=== PATIENT | female | born 1965 ===

== ENCOUNTER 2022-04-21 12:56 | Inpatient (IN) | payer OTHER, SELFPAY ==
[2022-04-21] VITALS (13 sets, daily range): BP systolic 110–169; BP diastolic 68–90; PULSE 73–130; RESP 15–20; TEMP 36.4–37.2; O2SAT 95–98; BMI 35.9
--- NOTE | ~2022-04-21 | XR_ITS ---
EXAMINATION: XR chest 1V portable DATE: 04/21/2022 14:18 INDICATION: Dizziness. Lower abdominal burning . COVID positive. TECHNIQUE: frontal view of the chest was obtained. COMPARISON: Chest radiograph dated 09/22/2013 FINDINGS: The lungs remain clear with no focal airspace opacities, pulmonary edema, pleural effusion or pneumot horax. The cardiomediastinal silhouette is normal. Old healed right clavicle fracture deformity. IMPRESSION: 1. No acute cardiopulmonary disease. Reviewed, dictated and finalized at location A.
--- NOTE | 2022-04-21 13:24 | ED.DIZZY ---
HPI - Dizziness General Chief Complaint: Dizziness Stated Complaint: covid +, dizziness, clammy Time Seen by Provider: 04/21/22 13:23 Related Data Allergies Allergy/AdvReac Type Severity Reaction Status Date / Time Iodinated Contrast Media AdvReac Intermediate unk Verified 04/21/22 13:12 [facility] Past Medical History Medical History Adult BMI 38.0-38.9 kg/sq m BMI 36.0-36.9,adult Family History Family History Mother Hypertension Father Family history of diabetes mellitus in first degree relative Grandparent Diabetes mellitus Social History Social History (Updated 04/05/22 @ 11:31 by Sharon Sanches RN) Tobacco type: cigarettes Second hand tobacco smoke exposure: No Alcohol intake: never Substance use: never Substance use type: does not use Gender identity (if verbalized by the patient): Female Sexual Orientation (if Verbalized by the Patient): Straight or Heterosexual Course Vital Signs Vital signs: Vital Signs Temperature 36.4 C 04/21/22 13:07 Pulse Rate 73 04/21/22 13:07 Respiratory Rate 19 04/21/22 13:07 Blood Pressure 169/81 H 04/21/22 13:07 Pulse Oximetry 98 04/21/22 13:07 Temperature 36.4 C 04/21/22 13:07 Pulse Rate 73 04/21/22 13:07 Respiratory Rate 19 04/21/22 13:07 Blood Pressure 169/81 H 04/21/22 13:07 Pulse Oximetry 98 04/21/22 13:07 Discharge Plan Discharge Prescriptions: No Action esomeprazole magnesium [Nexium] 20 mg capsule,delayed release(DR/EC) 20 mg PO DAILY Qty: 90 RF: 0 metformin 500 mg tablet 1,500 mg PO DAILY Qty: 270 RF: 1 phenazopyridine [Pyridium] 200 mg tablet 200 mg PO TID PRN (Reason: pain) Qty: 6 RF: 0 fluconazole [Diflucan] 150 mg tablet 150 mg PO ONCE Qty: 2 RF: 0 lisinopril 20 mg tablet 20 mg PO DAILY Qty: 90 RF: 3 amlodipine 5 mg tablet 10 mg PO DAILY Qty: 180 RF: 1 metoprolol tartrate 50 mg tablet See Rx Instructions .ROUTE .COMPLEX Qty: 180 RF: 0 amoxicillin-pot clavulanate 875-125 mg tablet 1 tablet PO BID Qty: 20 RF: 0 cholecalciferol (vitamin D3) 1,250 mcg (50,000 unit) capsule 1,250 mcg PO WEEKLY 56 Days Qty: 8 RF: 0 rosuvastatin 40 mg tablet 40 mg PO DAILY Qty: 90 RF: 0
--- NOTE | 2022-04-21 13:32 | ECG_ITS ---
Measurements Intervals [place] Rate: 131 P: CT: 0 QRS: -28 QRSD: 94 T: 107 QT: 293 QTc: 433 Interpretive Statements ATRIAL FIBRILLATION WITH RAPID VENTRICULAR RESPONSE WITH INTERMITTENT SINUS COMPLEXES VENTRICULAR COUPLET LEFT VENTRICULAR HYPERTROPHY WITH ST-T CHANGE ANTEROSEPTAL INFARCT, AGE INDETERMINATE INFERIOR INFARCT, AGE INDETERMINATE BASELINE ARTIFACT- I, II, III, AVR, AVL ABNORMAL ECG Electronically Signed On 04-21-2022 17:06:28 CDT by Alexis Coulter D.O.
[2022-04-21 13:46] LABS: Basophils Percent Auto 0.2 % (0.2-1.2); Eosinophils Absolute Auto 0.1 K/mm3 (0-0.3); Eosinophils Percent Auto 1.6 % (0-4.4); Hematocrit 46.5 % (37.0-47.0); Hemoglobin 15.6 g/dL (12.0-15.0); Immature Granulocyte Absolute 0.05 K/mm3 (0.00-0.031); Immature Granulocyte Percent A 0.6 % (0-0.5); Lymphocytes Absolute Auto 1.46 K/mm3 (0.9-3.2); Lymphocytes Percent Auto 17.7 % (18.3-44.2); Mean Corpuscular HGB Conc 33.5 g/dl (32-36); Mean Corpuscular Hemoglobin 29.9 pg (26-34); Mean Corpuscular Volume 89.1 fl (80-100); Mean Platelet Volume 11.2 fl (7.4-10.4); Monocytes Absolute Auto 0.6 K/mm3 (0.1-0.6); Monocytes Percent Auto 6.8 % (2.6-8.5); Neutrophils Percent Auto 73.1 % (45.5-73.1); Platelet Count Result 285 k/mm3 (150-375); Red Blood Count 5.22 M/mm3 (4.2-5.4); Red Cell Distribution Width 12.7 % (11.5-14.5); White Blood Count 8.2 K/mm3 (4.5-10.0)
[2022-04-21 13:55] LABS: Alanine Aminotransferase 52 U/L (6-35); Albumin Level 4.3 g/dL (3.5-5.1); Alkaline Phosphatase 96 U/L (38-126); Anion Gap 10 mmol/L (8-16); Aspartate Amino Transferase 49 U/L (14-36); Bilirubin,Total 0.6 mg/dL (0.2-1.3); Blood Urea Nitrogen 14 mg/dL (7-17); Calcium 8.9 mg/dL (8.4-10.2); Carbon Dioxide 23 mmol/L (22-30); Chloride 107 mmol/L (98-107); Estimated CRCL calculation 125 ml/min; Estimated Glomerular Filt Rate > 60; Glucose 203 mg/dL (65-110); Potassium 3.9 mmol/L (3.4-5.0); Sodium 140 mmol/L (137-145)
[2022-04-21] MEDS: LACTATED RINGERS 1,000 ML 999 ML IV CONT (14:05)
--- NOTE | 2022-04-21 14:19 | ED.DIZZY ---
HPI - Dizziness General Chief Complaint: Dizziness Stated Complaint: covid +, dizziness, clammy Time Seen by Provider: 04/21/22 13:23 Source: patient, RN notes reviewed and old records reviewed Mode of arrival: ambulatory Limitations: no limitations History of Present Illness HPI Narrative: This is a 56 year old female with history DM, hypertension, hyperlipidemia who presents for evaluation of dizziness. This morning she woke up with dizziness. She also reports having nausea, vomiting and loose stools. She continues to have intermittent episodes of dizziness. She denies associated chest pain, sob, abdominal pain, fever or chills. She was found to have covid last Saturday after she developed runny nose and cough. She reports her runny nose and cough have resolved. She has been antibiotics for UTI over the past couple of weeks. She denies heart disease or arrhythmia. She has been found to be tachycardic in ER. She denies palpitations or feeling her heart racing. Related Data Home Medications Medication Instructions Recorded Confirmed amlodipine 5 mg PO BID 04/21/22 04/21/22 esomeprazole magnesium [Nexium] 20 mg PO QPM 04/21/22 04/21/22 metformin See Rx Instructions .ROUTE .COMPLEX 04/21/22 04/21/22 metoprolol tartrate 50 mg PO BID 04/21/22 04/21/22 Allergies Allergy/AdvReac Type Severity Reaction Status Date / Time Iodinated Contrast Media AdvReac Intermediate unk Verified 04/21/22 13:12 Review of Systems Review of Systems: All systems reviewed & are unremarkable except as noted in HPI and below Constitutional: Constitutional: Reports fatigue ENT: Reports nasal congestion Cardiovascular: Cardiovascular: Denies chest pain, Denies rapid heart rate and Denies radiating jaw, neck or arm pain Respiratory: Respiratory: Denies cough and Denies dyspnea Gastrointestinal: Gastrointestinal: Denies abdominal pain, Reports diarrhea, Reports nausea and Reports vomiting Genitourinary: Genitourinary: Reports dysuria Neurologic: Reports dizziness and Denies headache(s) [facility] Past Medical History Medical History (Updated 04/21/22 @ 22:01 by Grace Dominique MD) Essential hypertension Mixed hyperlipidemia Type 2 diabetes mellitus Vitamin D deficiency, unspecified Surgical History Surgical History (Updated 04/21/22 @ 16:11 by Eva Arvizu PA-C) History of 2 sections History of hysteroscopy History of tubal ligation Family History Family History (Updated 04/21/22 @ 18:11 by ERICA Willis) Mother Hypertension Father Family history of diabetes mellitus in first degree relative Stomach cancer Grandparent Diabetes mellitus Social History Social History (Updated 04/21/22 @ 16:12 by Eva Arvizu PA-C) Social History: Surrogate decision maker: Code status: Smoking status: Never smoker Tobacco type: cigarettes Second hand tobacco smoke exposure: No Alcohol intake: never Substance use: never Substance use type: does not use Spiritual care concerns: No Exam Const: General: no acute distress and alert Nutritional Appearance: obese Orientation/consciousness: patient oriented x3 HENMT: Head: normocephalic and atraumatic Ears: TM's normal bilaterally Face and sinus: normal facial exam, sinuses nontender and face symmetric Mouth: Yes Normal oral and palatal mucosa present, Yes lip normal, Yes oropharynx normal and Yes moist mucous membranes Eyes: EOM: EOMs intact bilaterally Resp: Effort & Inspection: normal respiratory effort and no retractions Auscultation: clear to auscultation bilaterally Cardio: Rate: tachycardic Rhythm: abnormal rhythm Heart sounds: no murmurs GI: GI Palp: Yes Soft to palpation, No Tenderness to palpation present (GI) and No Guarding due to palpation present (GI) Auscultation: normal bowel sounds Neuro: General: patient oriented x3, moves all extremities and CN's II-XI intact bilaterally Extrem: Genera
[2022-04-21 14:39] LABS: Add Urine Microscopic? YES; Appearance Urine Clear (Clear); Bilirubin Urine 1+ (Negative); Blood Urine Negative (Negative); Color Urine Orange (Yellow); Glucose Urine UA Trace mg/dL (Negative); Ketones Urine Trace mg/dL (Negative); Leukocyte Esterase Ur Negative LEU/UL (Negative); Nitrate Urine Positive (Negative); Protein Urine 2+ mg/dL (Negative); Specific Grav Ur 1.015 (1.001-1.035)
[2022-04-21 14:43] LABS: Amorphous Sediment Urine Few; Bacteria Urine Trace /hpf; Mucus Urine Heavy /lpf; Squamous Epithelial Cell Urine Occasional /hpf (Few)
--- NOTE | 2022-04-21 15:06 | PC.NURSE ---
called lab at 1506 to add on a MG, Trop 1 Baseline, Pt/INR/PTT, BNP, and the lab stated that they were already working on the D dimer.
[2022-04-21 15:07] LABS: SARS-CoV-2 RNA PCR Positive
[2022-04-21 15:17] LABS: Magnesium 1.6 mg/dL (1.6-2.3)
[2022-04-21 15:20] LABS: Prothrombin Time 13.2 Seconds (11.1-14.7)
[2022-04-21 15:21] LABS: Partial Thromboplastin Time 27.9 SECONDS (22.3-36.8)
[2022-04-21 15:22] LABS: Thyroid Stimulating Hormone Reflex 0.979 uIU/mL (0.465-4.68)
[2022-04-21 15:23] LABS: D Dimer 0.34 ug/mL (<0.48)
[2022-04-21 15:25] LABS: NT Pro B Type Natriuretic Pept 858 pg/mL (5-100)
[2022-04-21] MEDS: AMIODARONE 150 MG/D5W 100 ML 150 MG/100 ML BAG 600 MG IV CONT (15:27)
[2022-04-21] MEDS: ENOXAPARIN 100 MG/ML SYRINGE SUB-Q (15:27)
[2022-04-21 15:30] LABS: Troponin I < 0.012 ng/mL (0.000-0.034)
[2022-04-21] MEDS: AMIODARONE 360 MG/D5W 200 ML 360 MG/200 ML BAG 33.33 MG IV CONT (16:22)
--- NOTE | 2022-04-21 16:30 | PM.IMHP ---
H&P: HPI History of Present Illness Date/Time: 04/21/22 16:30 Chief Complaint: Dizziness. Narrative: This is a 56-year-old female with type 2 diabetes, hypertension, and hyperlipidemia who presented to the emergency department for evaluation of dizziness. She did not feel well last Saturday with a cough, sore throat, nausea, vomiting, and loose stools. Same day she took an at home COVID test which came back positive. Her symptoms improved within about 3 days however over the past 3 days she has started to feel unwell again. She is vague in her descriptions but from what I can gather she has been feeling lightheaded and dizzy with position changes and she has also noticed that her upper abdomen seems to heave or quiver with activity. Additionally she reports mild shortness of breath with exertion. She also continues to have dysuria and burning in the vulvar area which has been an ongoing issue for over a month and she has been treated with 2 different antibiotics for urinary tract infections. She was afebrile on arrival to the emergency department and blood pressures have been stable. She has been tachycardic since arrival with telemetry demonstrating atrial fibrillation with rapid ventricular response although at times it looks as though she has occasional sinus complexes and frequent ectopy. Reportedly she had several brief runs of nonsustained ventricular tachycardia and she has since been started on an amiodarone drip. She has no known history of coronary artery disease or cardiac dysrhythmia and again she really has no sensations of racing heart or palpitations at this time. Review of Systems Review of Systems: Twelve systems were reviewed. No fever or chills. She denies sinus congestion and current sore throat. No significant cough. No orthopnea, PND, or lower extremity edema. No history of cardiac dysrhythmia or coronary artery disease. No history of thyroid disease. She denies concerns for sleep apnea. Appetite has been okay. No recent vomiting or diarrhea. No significant alcohol or caffeine intake. She continues to have dysuria and reports a burning sensation of the vulva. She has some clear vaginal discharge. No malodorous discharge, pruritus, or concerns for sexually transmitted infections. Except as documented, all other systems were reviewed and are negative. [facility] Past Medical History Medical History Essential hypertension Mixed hyperlipidemia Type 2 diabetes mellitus Vitamin D deficiency, unspecified Surgical History Surgical History (Updated 04/21/22 @ 16:11 by Eva Arvizu PA-C) History of 2 sections History of hysteroscopy History of tubal ligation Family History Family History Mother Hypertension Father Family history of diabetes mellitus in first degree relative Stomach cancer Grandparent Diabetes mellitus Social History Social History (Updated 04/21/22 @ 23:06 by Eva Arvizu PA-C) Social History: Surrogate decision maker: Luis M Rendon, spouse. Code status: Full code. Smoking status: Never smoker Tobacco type: cigarettes Second hand tobacco smoke exposure: No Alcohol intake: never Substance use: never Substance use type: does not use Spiritual care concerns: No Meds Home Medications and Allergies Home Medications Medication Instructions Recorded Confirmed Type lisinopril 20 mg tablet 20 mg PO DAILY #90 tablet 11/01/21 04/21/22 Rx cholecalciferol (vitamin D3) 1,250 1,250 mcg PO WEEKLY 56 Days #8 cap 04/20/22 04/21/22 Rx mcg (50,000 unit) capsule amlodipine 5 mg PO BID 04/21/22 04/21/22 History esomeprazole magnesium [Nexium] 20 mg PO QPM 04/21/22 04/21/22 History metformin See Rx Instructions .ROUTE .COMPLEX 04/21/22 04/21/22 History metoprolol tartrate 50 mg PO BID 04/21/22 04/21/22 History Allergies Allergy/AdvReac Type Severity Reac
--- NOTE | 2022-04-21 17:56 | ADMGEN ---
This patient, Collette Rendon, was admitted to IMU Room 200-01 at 1756. Patient/family oriented to hospital policies and general routines including ID bracelet, bed and alarms, visiting hours, pain management, procedures, bathroom and other care routines, personal items, smoking policy, room service/diet, and visiting hours. Information on how to activate the Rapid Response Team has been discussed. Patient/Family are encouraged to report perceived risks to care and to ask questions if they do not understand what they are told or what they should do.
[2022-04-21 20:03] LABS: Glucose Point of Care 271 mg/dl (65-105)
[2022-04-21] MEDS: AMIODARONE 360 MG/D5W 200 ML 360 MG/200 ML BAG 16.67 MG IV CONT (22:15)
[2022-04-21 23:14] LABS: Hemoglobin A1C 7.1 % (<5.7)
[2022-04-21] MEDS: METOPROLOL TARTRATE 50 MG TAB PO (23:46)
[2022-04-21] MEDS: MAGNESIUM SULF 2 GM/WATER 50ML 2 GM/50 ML BAG IVPB (23:46)
[2022-04-21] MEDS: POTASSIUM CHLORIDE 20 MEQ TABLET PO (23:47)
[2022-04-22] VITALS (20 sets, daily range): BP systolic 126–149; BP diastolic 60–80; PULSE 60–90; RESP 16–22; TEMP 36.2–37.1; O2SAT 94–97
[2022-04-22 04:49] LABS: Basophils Absolute Auto 0.1 K/mm3 (0.0-0.1); Basophils Percent Auto 0.6 % (0.2-1.2); Eosinophils Absolute Auto 0.2 K/mm3 (0-0.3); Eosinophils Percent Auto 2.4 % (0-4.4); Hematocrit 44.7 % (37.0-47.0); Hemoglobin 14.7 g/dL (12.0-15.0); Immature Granulocyte Absolute 0.04 K/mm3 (0.00-0.031); Immature Granulocyte Percent A 0.5 % (0-0.5); Lymphocytes Absolute Auto 2.28 K/mm3 (0.9-3.2); Lymphocytes Percent Auto 26.1 % (18.3-44.2); Mean Corpuscular HGB Conc 32.9 g/dl (32-36); Mean Corpuscular Hemoglobin 30.2 pg (26-34); Mean Corpuscular Volume 91.8 fl (80-100); Monocytes Absolute Auto 0.7 K/mm3 (0.1-0.6); Monocytes Percent Auto 8.2 % (2.6-8.5); Neutrophils Absolute Auto 5.5 K/mm3 (1.3-6.7); Neutrophils Percent Auto 62.2 % (45.5-73.1); Platelet Count Result 314 k/mm3 (150-375); Red Blood Count 4.87 M/mm3 (4.2-5.4); White Blood Count 8.8 K/mm3 (4.5-10.0)
[2022-04-22 04:59] LABS: Alanine Aminotransferase 50 U/L (6-35); Albumin Level 4.2 g/dL (3.5-5.1); Alkaline Phosphatase 75 U/L (38-126); Anion Gap 10 mmol/L (8-16); Aspartate Amino Transferase 51 U/L (14-36); Bilirubin,Total 0.6 mg/dL (0.2-1.3); Blood Urea Nitrogen 12 mg/dL (7-17); Calcium 8.7 mg/dL (8.4-10.2); Carbon Dioxide 27 mmol/L (22-30); Chloride 105 mmol/L (98-107); Estimated CRCL calculation 105 ml/min; Estimated Glomerular Filt Rate > 60; Glucose 180 mg/dL (65-110); Magnesium 2.3 mg/dL (1.6-2.3); Sodium 142 mmol/L (137-145)
[2022-04-22] MEDS: ENOXAPARIN 100 MG/ML SYRINGE SUB-Q ×2 (06:05→20:48)
--- NOTE | 2022-04-22 07:37 | ECG_ITS ---
Measurements Intervals [place] Rate: 73 P: 17 SD: 174 QRS: -29 QRSD: 99 T: 3 QT: 441 QTc: 488 Interpretive Statements SINUS RHYTHM VOLTAGE CRITERIA FOR LVH BORDERLINE R WAVE PROGRESSION, ANTERIOR LEADS CONSIDER INFERIOR INFARCT, AGE INDETERMINATE BASELINE WANDER- I, II, III ABNORMAL ECG Electronically Signed On 04-22-2022 11:00:50 CDT by Alexis Coulter D.O.
[2022-04-22 07:42] LABS: Glucose Point of Care 206 mg/dl (65-105)
--- NOTE | 2022-04-22 08:09 | PM.CNCAR ---
Assessment and Plan Additional Plan 56-year-old lady with history of hypertension and diabetes otherwise in relatively good health presents with the onset of lightheadedness episodes and has a rather chaotic rhythm noted in the emergency room. Appears to have both atrial and ventricular ectopic activity. These arrhythmias have settled down with amiodarone and she is now asymptomatic. Etiology of this is unclear it is certainly possible this is related to recent COVID infection. Since she did appear to have runs of nonsustained VT am going to keep her on the amiodarone infusion at least for today and get an echocardiogram ordered. That of course will not happen until tomorrow morning. Following that we will leave further recommendations regarding antiarrhythmic treatment. If she has preserved left ventricular systolic function I will try to select an agent that is less potentially toxic than amiodarone. She does not describe any symptoms suggestive of ischemic disease and has no significant evidence of valvular disease on physical exam. Hu Degroot MD [facility] History of Present Illness History of Present Illness Consult date/time: 04/22/22 08:09 Consult reason: Other (Nonsustained ventricular tachycardia) Reason For Visit: Nonsustained V Tach, COVID+, Dizziness Narrative: This is a pleasant previously relatively healthy 56-year-old lady I am seeing at the request of the hospitalist and emergency room staff because of atrial and ventricular arrhythmias that were noted in the emergency room last evening. The patient says she was in her usual state of health when the day prior to coming in she noticed the onset of symptoms of lightheadedness and dizziness upon arising from a seated position. She did not have a syncopal episode or of his consciousness at any point she noted these symptoms to be something very unusual for her and yesterday afternoon came into the emergency department to be evaluated. In the ED was noted that she was tachycardic and rhythm strips were recorded as well as electrocardiogram. She appears to have sinus rhythm with frequent runs of atrial ectopic activity as well as several runs of what appears to be monomorphic ventricular tachycardia on telemetry. She was bolused with amiodarone in the emergency room placed on amiodarone infusion and admitted to the IMU. After being placed on amiodarone her rhythm has stabilized she is in sinus rhythm at this time with a heart rate of 76 and she is asymptomatic. She has no prior history of cardiac problems that she has ever been made aware of. She interestingly did test positive for coronavirus about a week ago. She had symptoms of a dry nonproductive cough and right rhinorrhea without any fever or chills. She took a COVID test at home and it was positive. The symptoms lasted for a few days and then resolved. In addition to this she has been feeling unwell with symptoms that are attributed to a ongoing urinary infection with dysuria that is been going on for about a month. Her primary care has had her on a couple of courses of antibiotics without improvement in these symptoms. She is not describing any fever chills or flank pain. Past medical history is primarily remarkable for longstanding hypertension which for which she takes a combination of metoprolol lisinopril and amlodipine she says generally very good control. She has non insulin-dependent diabetes which she says is also well controlled with diet and metformin. She is a lifelong nonsmoker. No other serious illnesses or hospitalizations. Review of Systems Constitutional: Constitutional: Reports no additional constitutional complaints Eyes: Eyes: Reports no additional eye complaints ENT: Reports system reviewed and no additional complaints, except as documented Cardiovascular: Cardiovascular: Reports as per HPI Respiratory: Respiratory: Reports no additional respiratory complaints Gastrointestinal: Gastrointestina
[2022-04-22] MEDS: AMIODARONE 360 MG/D5W 200 ML 360 MG/200 ML BAG 16.67 MG IV CONT ×2 (08:34→20:48)
[2022-04-22] MEDS: metFORMIN HCL 500 MG TABLET 1000 MG PO (08:35)
[2022-04-22] MEDS: METOPROLOL TARTRATE 50 MG TAB PO ×2 (08:35→20:47)
[2022-04-22] MEDS: lisinopriL 20 MG TABLET PO (08:35)
[2022-04-22] MEDS: amLODIPine BESYLATE 5 MG TABLET PO ×2 (08:36→17:17)
[2022-04-22] MEDS: INSULIN ASPART (*BKC) 100 UNITS/ML SUB-Q ×2 (08:36→12:17)
--- NOTE | 2022-04-22 11:01 | PM.IMPN ---
Progress Note: A&P Assessment and Plan (1) Atrial fibrillation with rapid ventricular response: Code(s): I48.91 - Unspecified atrial fibrillation Status: Acute Assessment and Plan: Patient started on amiodarone drip due to the above and brief runs of an SVT. Continue enoxaparin 1 milligram/kilogram b.i.d.. Echocardiogram pending Dr. Degroot consulted; input appreciated. (2) Non-sustained ventricular tachycardia: Code(s): I47.2 - Ventricular tachycardia Status: Acute Assessment and Plan: Continue amiodarone drip as detailed above. Potassium and magnesium will be replaced as they are at the low end of normal. (3) Dizziness: Code(s): R42 - Dizziness and giddiness Status: Acute Assessment and Plan: Likely related to tachycardia; blood pressures have been stable. TIA/CVA unlikely as she definitely describes lightheadedness and not vertigo. PE considered but less likely given normal D-dimer. (4) COVID-19: Code(s): U07.1 - COVID-19 Status: Acute Assessment and Plan: Tested positive 1 week ago on a home test, confirmed today. Chest x-ray was unremarkable with no oxygen requirement. No indication for dexamethasone or remdesivir at this time. (5) Essential hypertension: Code(s): I10 - Essential (primary) hypertension Status: Acute Assessment and Plan: Blood pressures were reviewed and they are stable. Continue antihypertensives and monitor blood pressure closely. (6) Type 2 diabetes mellitus: Code(s): E11.9 - Type 2 diabetes mellitus without complications Status: Acute Assessment and Plan: Initiate sliding scale insulin, Accu-Cheks, and hypoglycemic protocol. (7) Abnormal urinalysis: Code(s): R82.90 - Unspecified abnormal findings in urine Status: Acute Assessment and Plan: UTI symptoms continue despite two recent antibiotics. Hold antibiotics pending urine culture. Urology and COST MANAGER referral may be prudent. Subjective Date/time seen: 04/22/22 11:01 Interval history: HPI:This is a 56-year-old female with type 2 diabetes, hypertension, and hyperlipidemia who presented to the emergency department for evaluation of dizziness. She did not feel well last Saturday with a cough, sore throat, nausea, vomiting, and loose stools. Same day she took an at home COVID test which came back positive. Her symptoms improved within about 3 days however over the past 3 days she has started to feel unwell again. She is vague in her descriptions but from what I can gather she has been feeling lightheaded and dizzy with position changes and she has also noticed that her upper abdomen seems to heave or quiver with activity. Additionally she reports mild shortness of breath with exertion. She also continues to have dysuria and burning in the vulvar area which has been an ongoing issue for over a month and she has been treated with 2 different antibiotics for urinary tract infections. She was afebrile on arrival to the emergency department and blood pressures have been stable. She has been tachycardic since arrival with telemetry demonstrating atrial fibrillation with rapid ventricular response although at times it looks as though she has occasional sinus complexes and frequent ectopy. Reportedly she had several brief runs of nonsustained ventricular tachycardia and she has since been started on an amiodarone drip. She has no known history of coronary artery disease or cardiac dysrhythmia and again she really has no sensations of racing heart or palpitations at this time. 04/22/2022 no overnight events. Feels well. Remains in sinus rhythm on the telemetry. Remains on amiodarone drip per Cardiology Review of Systems Review of Systems: All systems reviewed & are unremarkable except as noted in HPI and below (HPI) Exam Narrative: General: Well-developed female, nontoxic in appearance. HEENT: [place].
[2022-04-22 12:05] LABS: Glucose Point of Care 219 mg/dl (65-105)
[2022-04-22 16:36] LABS: Glucose Point of Care 135 mg/dl (65-105)
[2022-04-22] MEDS: metFORMIN HCL 500 MG TABLET PO (17:18)
[2022-04-22] MEDS: PANTOPRAZOLE 40 MG TABLET PO (17:18)
[2022-04-22 20:28] LABS: Glucose Point of Care 182 mg/dl (65-105)
[2022-04-23] VITALS (15 sets, daily range): BP systolic 128–149; BP diastolic 62–78; PULSE 53–88; RESP 16; TEMP 36.2–36.6; O2SAT 94–97
--- NOTE | 2022-04-23 | ECHO_ITS ---
Patient Info Name: Collette Rendon Age: 56 years : 1965 Gender: Female Ht: 66 in Wt: 220 lbs BSA: 2.20 m2 HR: 72 bpm BP: 128 / 68 mmHg Heart Rhythm: Sinus Rhythm Exam Date: 04/23/2022 11:49 AM Exam Location: [facility] Patient Status: Inpatient Admit Date: 04/22/2022 Staff Ordering Physician: Hu Degroot MD Pottery Striper: Ronnie Washington, KIPCS, RT Attending Provider: Tawanda Peterson MD Referring Physician: Zane ADAMSON; Exam Type: CA echo doppler color flow Study Info Indications I47.2 - Ventricular tachycardia Complete two-dimensional, color flow and Doppler transthoracic echocardiogram is performed. Strain analysis performed. Summary 1. Complete two-dimensional, color flow and Doppler transthoracic echocardiogram is performed. 2. Left ventricular chamber dimension is normal. 3. Left ventricular systolic function is normal, estimated at 50-55%. 4. Trivial MR otherwise no significant valvular abnormality. Left Ventricle Left ventricular chamber dimension is normal. Left ventricular systolic function is normal, estimated at 50-55%. The left ventricular diastolic function is grade I diastolic dysfunction. Right Ventricle Right ventricular chamber dimension is normal. Left Atria Left atrial chamber dimension is normal. Right Atria Right atrial chamber dimension is normal. Aortic Valve The aortic valve is normal. Pulmonic Valve The pulmonic valve is normal. Mitral Valve The mitral valve has normal leaflets. There is trace mitral valve regurgitation. Tricuspid Valve The tricuspid valve leaflets are normal. Pericardium/Pleural The pericardium appears normal. Aorta The aortic root size at the sinus of Valsalva is normal. Left Ventricular Outflow Tract Name Value Normal LVOT 2D LVOT Diameter 2.1 cm LVOT Doppler LVOT Peak Gradient 5 mmHg LVOT Mean Gradient 4 mmHg LVOT VTI 26 cm LVOT VTI/AV VTI Ratio 0.8 LVOT Stroke Volume 90 ml LVOT CO 6.7 l/min LVOT CI 3.0 l/min/m2 Mitral Valve Name Value Normal MV Doppler MV Peak Gradient 1 mmHg MV Mean Gradient 0 mmHg MV Decel [place] 369 cm/s2 MV PHT 59 ms MV Area (PHT) 3.7 cm2 4.0-5.0 MV Area (Cont Eq VTI) 8.0 cm2 MV Regurgitation Doppler MR Volume (Cont Eq) 5 ml MR Fraction (Cont Eq) 5 % MV Diastolic Function
[2022-04-23 05:56] LABS: Basophils Percent Auto 0.4 % (0.2-1.2); Eosinophils Absolute Auto 0.2 K/mm3 (0-0.3); Hematocrit 38.3 % (37.0-47.0); Hemoglobin 12.9 g/dL (12.0-15.0); Immature Granulocyte Absolute 0.03 K/mm3 (0.00-0.031); Immature Granulocyte Percent A 0.4 % (0-0.5); Lymphocytes Absolute Auto 2.09 K/mm3 (0.9-3.2); Lymphocytes Percent Auto 26.5 % (18.3-44.2); Mean Corpuscular HGB Conc 33.7 g/dl (32-36); Mean Corpuscular Hemoglobin 30.5 pg (26-34); Mean Corpuscular Volume 90.5 fl (80-100); Mean Platelet Volume 11.3 fl (7.4-10.4); Monocytes Absolute Auto 0.7 K/mm3 (0.1-0.6); Neutrophils Absolute Auto 4.8 K/mm3 (1.3-6.7); Neutrophils Percent Auto 60.7 % (45.5-73.1); Platelet Count Result 245 k/mm3 (150-375); Red Blood Count 4.23 M/mm3 (4.2-5.4); Red Cell Distribution Width 12.8 % (11.5-14.5); White Blood Count 7.9 K/mm3 (4.5-10.0)
[2022-04-23 06:06] LABS: Alanine Aminotransferase 53 U/L (6-35); Albumin Level 3.7 g/dL (3.5-5.1); Alkaline Phosphatase 75 U/L (38-126); Anion Gap 6 mmol/L (8-16); Aspartate Amino Transferase 49 U/L (14-36); Bilirubin,Total 0.4 mg/dL (0.2-1.3); Blood Urea Nitrogen 14 mg/dL (7-17); Calcium 8.4 mg/dL (8.4-10.2); Carbon Dioxide 28 mmol/L (22-30); Chloride 106 mmol/L (98-107); Estimated CRCL calculation 105 ml/min; Estimated Glomerular Filt Rate > 60; Glucose 166 mg/dL (65-110); Magnesium 1.8 mg/dL (1.6-2.3); Potassium 3.6 mmol/L (3.4-5.0); Sodium 140 mmol/L (137-145)
[2022-04-23] MEDS: metFORMIN HCL 500 MG TABLET 1000 MG PO (08:31)
[2022-04-23] MEDS: AMIODARONE 360 MG/D5W 200 ML 360 MG/200 ML BAG 16.67 MG IV CONT (08:31)
[2022-04-23] MEDS: amLODIPine BESYLATE 5 MG TABLET PO ×2 (08:31→16:58)
[2022-04-23] MEDS: ENOXAPARIN 100 MG/ML SYRINGE SUB-Q (08:32)
[2022-04-23] MEDS: METOPROLOL TARTRATE 50 MG TAB PO (08:32)
[2022-04-23] MEDS: lisinopriL 20 MG TABLET PO (08:32)
[2022-04-23 08:37] LABS: Glucose Point of Care 192 mg/dl (65-105)
[2022-04-23 13:19] LABS: Glucose Point of Care 161 mg/dl (65-105)
--- NOTE | 2022-04-23 15:25 | PM.PNCARD ---
Progress Note: A&P Assessment and Plan (1) Cardiac arrhythmia: Code(s): I49.9 - Cardiac arrhythmia, unspecified Status: Acute Assessment and Plan: Presented with lightheadedness and was noted to have an abnormal heart rhythm on EKG with frequent atrial and ventricular ectopy. She was placed on IV amiodarone which has eliminated this ectopy. No findings on echo that would raise concern for an ischemic or valvular cause of her arrhythmia. Would prefer to shift her from amiodarone to an antiarrhythmic agent with less toxicity. Will discontinue amiodarone and start her on flecainide 50mg b.i.d. and continue her current dose of metoprolol. She will need to have an EKG in the office in one week. Would be okay for her to be discharged today from a cardiac standpoint. Subjective Date/time seen: 04/23/22 15:25 Cardiology follow up for atrial and ventricular ectopy She's feeling well today - no complaints of any kind. She is not experiencing any further dizziness. She has no chest pain, palpitations, shortness of breath. Eager to go home. Review of Systems Constitutional: Constitutional: Reports no additional constitutional complaints Eyes: Eyes: Reports no additional eye complaints ENT: Reports system reviewed and no additional complaints, except as documented Cardiovascular: Cardiovascular: Reports as per HPI Respiratory: Respiratory: Reports no additional respiratory complaints Gastrointestinal: Gastrointestinal: Reports no additional gastrointestinal complaints Genitourinary: Genitourinary: Reports vaginal discharge Musculoskeletal: Musculoskeletal: Reports no additional musculoskeletal complaints Integumentary/Breasts: Skin/Breast: Reports system reviewed and no additional complaints, except as docu Endocrine: Endocrine: Reports no additional endocrine complaints Hematologic/Lymphatic: Hematologic/Lymphatic: Reports no additional hematologic/lymphatic complaints Allergic/Immunologic: Allergic/Immunologic: Reports no additional allergic/immunologic complaints Exam Const: General: comfortable and no acute distress Other: Pleasant woman sitting on the edge of the bed talking on the phone. HENMT: Mouth: Yes moist mucous membranes Eyes: Sclera: sclerae normal Pupils: Equal, round and reactive pupils present Neck: Neck: supple and no JVD Resp: Effort & Inspection: normal respiratory effort Auscultation: clear to auscultation bilaterally Cardio: Rate: regular rate Rhythm: regular rhythm Heart sounds: no murmurs GI: Auscultation: normal bowel sounds Skin: General skin exam: normal color Neuro: Cranial nerves: Yes Equal, round and reactive pupils present Cognition (Neuro): normal cognition Extrem: General: normal to inspection Other: No edema, normal distal pulses Objective Data Vital Signs Vital Signs: Vital Signs - 24 hr 04/22/22 16:00 04/22/22 17:20 04/22/22 18:00 Temperature 36.7 C Pulse Rate 88 90 74 Respiratory Rate 20 Blood Pressure 140/79 Pulse Oximetry 97 04/22/22 20:00 04/22/22 20:34 04/22/22 20:47 Temperature 37.1 C Pulse Rate 88 77 77 Respiratory Rate 22 H Blood Pressure 135/62 Pulse Oximetry 95 04/22/22 22:00 04/23/22 00:00 04/23/22 00:02 Temperature 36.5 C Pulse Rate 67 79 Respiratory Rate 16 Blood Pressure 135/62 142/75 H Pulse Oximetry 94 04/23/22 02:00 04/23/22 03:43 04/23/22 04:00 Temperature 36.2 C L Pulse Rate 67 67 68 Respiratory Rate 16 Blood Pressure 128/68 Pulse Oximetry 94 04/23/22 05:48 04/23/22 08:00 04/23/22 08:31 Temperature 36.5 C Pulse Rate 53 L 75 83 Respiratory Rate 16 Blood Pressure 147/78 H 147/78 H Pulse Oximetry 96 04/23/22 08:32 04/23/22 10:00 04/23/22 10:28 Temperature Pulse Rate 88 78 78 Respiratory Rate Blood Pressure Pulse Oximetry 04/23/22 12:00 04/23/22 14:00 Temperature 36.6 C Pulse Rate 83 72 Respiratory Rate 16 Blood Pressu
--- NOTE | 2022-04-23 16:13 | PM.DS ---
DS: Admitting Diagnosis Discharge Date 04/23/2022 Admitting Diagnosis Dizziness DS: Discharge Diagnosis Discharge Diagnosis (1) Atrial fibrillation with rapid ventricular response: Code(s): I48.91 - Unspecified atrial fibrillation Status: Acute Assessment and Plan: However upon further review not clear with this she had atrial fibrillation or not. Patient also had brief runs of NSVT. She was started on amiodarone. She also so started on anticoagulation therapeutic dose for possible atrial fibrillation She remained in sinus rhythm without any further event during the hospital stay. Cardiology was consulted echocardiogram was performed She was switched to flecainide at discharge. Plans to follow-up with cardiology as an outpatient basis (2) Non-sustained ventricular tachycardia: Code(s): I47.2 - Ventricular tachycardia Status: Acute Assessment and Plan: Started on amiodarone drip. Eventually was planned to be switched to flecainide at discharge Potassium and magnesium will be replaced as they are at the low end of normal. (3) Dizziness: Code(s): R42 - Dizziness and giddiness Status: Acute Assessment and Plan: Likely related to tachycardia; blood pressures have been stable. TIA/CVA unlikely as she definitely describes lightheadedness and not vertigo. PE considered but less likely given normal D-dimer. (4) COVID-19: Code(s): U07.1 - COVID-19 Status: Acute Assessment and Plan: Tested positive 1 week ago on a home test, confirmed today. Chest x-ray was unremarkable with no oxygen requirement. No indication for dexamethasone or remdesivir at this time. (5) Essential hypertension: Code(s): I10 - Essential (primary) hypertension Status: Acute Assessment and Plan: Blood pressures were reviewed and they are stable. Continue antihypertensives and monitor blood pressure closely. (6) Type 2 diabetes mellitus: Code(s): E11.9 - Type 2 diabetes mellitus without complications Status: Acute Assessment and Plan: Initiate sliding scale insulin, Accu-Cheks, and hypoglycemic protocol. (7) Abnormal urinalysis: Code(s): R82.90 - Unspecified abnormal findings in urine Status: Acute Assessment and Plan: UTI symptoms continue despite two recent antibiotics. Will treat with Keflex at discharge for 5 days Urine culture had polymicrobial growth DS: Summary Hospital Course Hospital Course: See above Time Spent with Patient Time attestation: Total time spent providing and/or coordinating discharge services: 45 minutes Exam Narrative: General: Well-developed female, nontoxic in appearance. HEENT: PERRL, EOMI. Sclerae anicteric. Tacky mucous membranes. Oropharynx is clear. Neck: Supple. No JVD or lymphadenopathy. Respiratory: Respirations are nonlabored and lungs are clear to auscultation bilaterally. Cardiovascular: Irregularly irregular rate and rhythm. Gastrointestinal: Abdomen is soft, nontender, and nondistended with positive bowel sounds. Skin: Warm and dry. No rash or lesions on limited exam. Extremities: No cyanosis, clubbing, or edema. Radial and pedal pulses intact. Neurological: Alert. Cranial nerves 2-12 are grossly intact. No gross focal deficits to casual conversation. Psychiatric: Pleasant and cooperative with normal mood and affect. DS: Data Data Completed and Pending Completed studies during hospitalization: Exam Type: CA echo doppler color flow Study Info Indications I47.2 - Ventricular tachycardia Complete two-dimensional, color flow and Doppler transthoracic echocardiogram is performed. Strain analysis performed. Summary 1. Complete two-dimensional, color flow and Doppler transthoracic echocardiogram is performed. 2. Left ventricular chamber dimension is normal. 3. Left ventricular systolic function is
[2022-04-23] MEDS: FLECAINIDE ACETATE 50 MG TABLET PO (16:57)
[2022-04-23] MEDS: metFORMIN HCL 500 MG TABLET PO (16:58)
[2022-04-23] MEDS: PANTOPRAZOLE 40 MG TABLET PO (16:59)
[2022-04-23 17:25] LABS: Glucose Point of Care 157 mg/dl (65-105)
== END 2022-04-23 17:34 | disposition home or self-care (01) | DRG 178 ==
LOC: ANHED 14:02 → ANHIMU 16:42
PROVIDERS: Emergency Medicine; Physician Assistant; Specialist; Admitting Provider Family Medicine; Emergency Provider General Practice; PCP Family Medicine; Visit Provider Internal Medicine
DX: U07.1 COVID-19 (principal); I47.2 Ventricular tachycardia; I48.91 Unspecified atrial fibrillation; R42 Dizziness and giddiness; R82.90 Unspecified abnormal findings in urine; I10 Essential (primary) hypertension; E11.9 Type 2 diabetes mellitus without complications; E78.2 Mixed hyperlipidemia; Z79.84 Long term (current) use of oral hypoglycemic drugs; Z79.899 Other long term (current) drug therapy
CPT/HCPCS: 36415; 71045; 80053; 81001; 82948; 83036; 83735; 83880; 84443; 84484; 85025; 85380; 85610; 85730; 87040; 87086; 87088; 93005; 93306; 96361; 96365; 96366; 96368; 96372; 99285; A9270; C9803; G0378; J0282; J1650; J1815; J3475; J7120; U0003; U0005

== ENCOUNTER 2023-03-28 06:53 | Emergency (ER) | payer OTHER, SELFPAY ==
[2023-03-28] VITALS (15 sets, daily range): BP systolic 136–162; BP diastolic 62–74; PULSE 64–72; RESP 12–18; TEMP 36.6; O2SAT 96–99
--- NOTE | ~2023-03-28 | XR_ITS ---
Clinical Indication: Chest pain PA and lateral views of the chest: Comparison: 04/21/2022 Findings: The lungs are clear, without evidence of focal consolidation or pleural effusion. Cardiome diastinal silhouette is within normal limits. Probable mild anterior wedging deformity of T12. Impression: Clear lungs. Probable mild anterior wedging deformity of T12. Reviewed, dictated and finalized at location . Impression: Clear lungs. Probable mild anterior wedging deformity of T12.
--- NOTE | 2023-03-28 06:55 | ECG_ITS ---
Measurements Intervals [place] Rate: 71 P: 36 NE: 183 QRS: -19 QRSD: 92 T: 9 QT: 399 QTc: 435 Interpretive Statements SINUS RHYTHM LOW QRS VOLTAGE IN PRECORDIAL LEADS [QRS DEFLECTION < 1.0 mV IN CHEST LEADS] POSSIBLE ANTERIOR MYOCARDIAL INFARCTION , PROBABLY OLD [30 ms Q WAVE IN V3/V4, OR R < 0.2 mV IN V4] ABNORMAL ECG COMPARED TO ECG 04/22/2022 08:08:48 NO SIGNIFICANT CHANGES Electronically Signed On 03-28-2023 8:59:49 CDT by Christiano Pascal M.D.
[2023-03-28 07:06] LABS: Basophils Absolute Auto 0.1 K/mm3 (0.0-0.1); Basophils Percent Auto 0.6 % (0.2-1.2); Eosinophils Absolute Auto 0.3 K/mm3 (0-0.3); Eosinophils Percent Auto 2.8 % (0-4.4); Hematocrit 43.1 % (37.0-47.0); Hemoglobin 14.6 g/dL (12.0-15.0); Immature Granulocyte Absolute 0.05 K/mm3 (0.00-0.031); Immature Granulocyte Percent A 0.5 % (0-0.5); Lymphocytes Absolute Auto 1.81 K/mm3 (0.9-3.2); Lymphocytes Percent Auto 18.5 % (18.3-44.2); Mean Corpuscular HGB Conc 33.9 g/dl (32-36); Mean Corpuscular Hemoglobin 30.5 pg (26-34); Mean Corpuscular Volume 90.2 fl (80-100); Mean Platelet Volume 11.3 fl (7.4-10.4); Monocytes Absolute Auto 0.7 K/mm3 (0.1-0.6); Monocytes Percent Auto 7.1 % (2.6-8.5); Neutrophils Absolute Auto 6.9 K/mm3 (1.3-6.7); Neutrophils Percent Auto 70.5 % (45.5-73.1); Platelet Count Result 272 k/mm3 (150-375); Red Blood Count 4.78 M/mm3 (4.2-5.4); Red Cell Distribution Width 12.7 % (11.5-14.5); White Blood Count 9.8 K/mm3 (4.5-10.0)
[2023-03-28 07:18] LABS: Alanine Aminotransferase 46 U/L (6-35); Albumin Level 4.6 g/dL (3.5-5.1); Alkaline Phosphatase 123 U/L (38-126); Anion Gap 9 mmol/L (8-16); Aspartate Amino Transferase 40 U/L (14-36); Bilirubin,Total 0.7 mg/dL (0.2-1.3); Blood Urea Nitrogen 16 mg/dL (7-17); Calcium 9.1 mg/dL (8.4-10.2); Carbon Dioxide 23 mmol/L (22-30); Chloride 106 mmol/L (98-107); Estimated CRCL calculation 127 ml/min; Estimated Glomerular Filt Rate > 60; Glucose 168 mg/dL (65-110); Lipase 121 U/L (23-300); Potassium 4.4 mmol/L (3.4-5.0); Sodium 138 mmol/L (137-145)
[2023-03-28 07:29] LABS: Troponin I < 0.012 ng/mL (0.000-0.034)
[2023-03-28] MEDS: ASPIRIN 81 MG CHEWABLE TABLET 324 MG PO (07:32)
[2023-03-28 07:34] LABS: INR 0.9; Prothrombin Time 12.4 Seconds (11.1-14.7)
[2023-03-28 07:35] LABS: Partial Thromboplastin Time 26.9 SECONDS (22.3-36.8)
--- NOTE | 2023-03-28 08:30 | ED.CHESTPAIN ---
HPI - Chest Pain General Chief Complaint: Chest Pain Stated Complaint: chest pain Time Seen by Provider: 03/28/23 06:58 History of Present Illness HPI narrative: 57-year-old female presenting the emergency department for evaluation of intermittent left-sided chest pain. Patient states over the last few weeks she has had intermittent left-sided chest pain that she describes as lasting approximately 1 second and being sharp. Patient states that yesterday as well as recurring more frequently and states that it does only last 1 second but occurs every 5 or 10 minutes. Patient states she is unable to associate anything that seems to be causing the pain. Patient states it is not worsened by exertion and does not worsen with deep inspiration. Patient denies any falls or injuries. Patient reports yesterday that she was right in the car and she had onset of this pain while at rest. Patient states that while she was in the ED she did have some brief chest pain when walking to the bathroom. At time of evaluation patient denies any chest pain or shortness of breath. Patient states she is also had some recent issues with constipation but has been taking some laxative. Patient denies any prior history of PE or DVT. Patient does have history of high cholesterol, hypertension and is diabetic. Patient reports that she had similar pain approximate 1 year ago. Patient appeared to be having runs of nonsustained VT and was started on amiodarone while hospitalized and was switched to flecainide at discharge. Patient had a negative echo at that time. Related Data Home Medications Medication Instructions Recorded Confirmed esomeprazole magnesium 20 mg 20 mg PO QPM 04/21/22 06/29/22 capsule,delayed release (Nexium) Allergies Allergy/AdvReac Type Severity Reaction Status Date / Time Iodinated Contrast Media AdvReac Intermediate unk Verified 06/29/22 07:19 Review of Systems Review of Systems: All systems reviewed & are unremarkable except as noted in HPI and below PMFSH Past Medical History Medical History Essential hypertension Mixed hyperlipidemia Type 2 diabetes mellitus Vitamin D deficiency, unspecified Surgical History Surgical History History of 2 sections History of tubal ligation Family History Family History Mother Hypertension Father Family history of diabetes mellitus in first degree relative Stomach cancer Grandparent Diabetes mellitus Sibling Hypotension Social History Social History Social History: Surrogate decision maker: Luis M Rendon, spouse. Code status: Full code. Smoking status: Never smoker Tobacco type: cigarettes Second hand tobacco smoke exposure: No Alcohol intake: current Substance use: never Substance use type: does not use Living arrangements: with family Occupation/Education: occupation Additional occupation/education comments: [employer] Gender identity (if verbalized by the patient): Female Spiritual care concerns: No Exam Narrative: APPEARANCE: Well appearing, no pain, no distress, well-nourished. HEAD: normocephalic, atraumatic. EYES: PERRLA/EOMI, conjunctivae clear. NOSE: Normal no drainage NECK: Supple. No adenopathy, no masses. RESPIRATORY: Airway patent, respirations nonlabored. Clear to auscultation bilaterally, no rales, rhonchi, wheezing. CARDIOVASCULAR: Regular rate and rhythm without murmurs rubs or gallops. ABDOMINAL: Soft, nontender, nondistended, normal bowel sounds MUSCULOSKELETAL: Moves all extremities. Strength/ROM intact, No edema, No calf tenderness. NEURO: Alert. Cranial nerves II through XII intact. Grossly intact SKIN: Warm, dry. Normal Color Course Course Emergency
[2023-03-28 08:44] LABS: D Dimer 0.44 ug/mL (<0.48)
[2023-03-28 10:38] LABS: Troponin I < 0.012 ng/mL (0.000-0.034)
== END 2023-03-28 11:30 | disposition home or self-care (01) ==
PROVIDERS: Emergency Medicine; Emergency Provider Emergency Medicine; PCP Family Medicine
DX: R07.89 Other chest pain (principal); I10 Essential (primary) hypertension; E11.9 Type 2 diabetes mellitus without complications; E78.2 Mixed hyperlipidemia; E55.9 Vitamin D deficiency, unspecified; Z79.85 Long-term (current) use of injectable non-insulin antidiabetic drugs; Z79.84 Long term (current) use of oral hypoglycemic drugs; R94.31 Abnormal electrocardiogram [ECG] [EKG]
CPT/HCPCS: 36415; 71046; 80053; 83690; 84484; 85025; 85380; 85610; 85730; 93005; 99284; A9270